=== PATIENT | male | born 1950 | race American Indian/Alaskan Native ===

== ENCOUNTER → 2023-08-01 07:54 | Outpatient (REF) | payer MEDICARE, OTHER, SELFPAY | LOC: DHCBC/DCA 07:54 | PROVIDERS: ATTENDING PHYSICIAN Internal Medicine Cardiovascular Disease; FAMILY PHYSICIAN Internal Medicine | DX: I25.10 Atherosclerotic heart disease of native coronary artery without angina pectoris (principal) | CPT/HCPCS: 78452; 93017; A9500; J2785 ==

== ENCOUNTER → 2024-01-07 11:03 | Outpatient (REF) | payer MEDICARE, OTHER, SELFPAY | LOC: HWRAD 11:03 | PROVIDERS: ATTENDING PHYSICIAN Otolaryngology; FAMILY PHYSICIAN Internal Medicine | DX: J30.89 Other allergic rhinitis (principal); J32.4 Chronic pansinusitis | CPT/HCPCS: 70486 ==

== ENCOUNTER → 2024-03-09 13:51 | Outpatient (REF) | payer MEDICARE, OTHER, SELFPAY | LOC: HWRAD 13:51 | PROVIDERS: ATTENDING PHYSICIAN Physician Assistant Medical; FAMILY PHYSICIAN Internal Medicine; REFERRING PHYSICIAN Surgery | DX: K57.32 Diverticulitis of large intestine without perforation or abscess without bleeding (principal) | CPT/HCPCS: 74177; Q9967 ==

== ENCOUNTER 2024-04-30 06:11 | Day surgery (SDC) | payer MEDICARE, OTHER, SELFPAY ==
[2024-04-30] VITALS (8 sets, daily range): BP systolic 120–152; BP diastolic 74–138; BMI 22.9
[2024-04-30] MEDS: NORMOSOL-R/PLASMALYTE-A 1000 IV (06:42)
[2024-04-30] MEDS: TYLENOL 1000 MG PO (06:42)
== END 2024-04-30 12:15 | disposition home or self-care (01) ==
LOC: SDS 06:11
PROVIDERS: ATTENDING PHYSICIAN Surgery
DX: K43.6 Other and unspecified ventral hernia with obstruction, without gangrene (principal); K42.9 Umbilical hernia without obstruction or gangrene
CPT/HCPCS: 49591; C1781

== ENCOUNTER → 2024-09-20 11:20 | Outpatient (REF) | payer OTHER, SELFPAY | LOC: RAD 11:20 | PROVIDERS: ATTENDING PHYSICIAN Student in an Organized Health Care Education/Training Program; FAMILY PHYSICIAN Internal Medicine | DX: I25.10 Atherosclerotic heart disease of native coronary artery without angina pectoris (principal) | CPT/HCPCS: 71046 ==

== ENCOUNTER → 2024-10-05 07:29 | Outpatient (REF) | payer OTHER, SELFPAY | LOC: HWRCS 07:29 | PROVIDERS: ATTENDING PHYSICIAN Student in an Organized Health Care Education/Training Program; FAMILY PHYSICIAN Internal Medicine | DX: I25.10 Atherosclerotic heart disease of native coronary artery without angina pectoris (principal) | CPT/HCPCS: 78452; 93017; A9500; J2785 ==

== ENCOUNTER 2024-10-12 08:41 | Day surgery (SDC) | payer OTHER, SELFPAY ==
[2024-10-12] VITALS (14 sets, daily range): BP systolic 71–160; BP diastolic 40–84; BMI 25.0
[2024-10-12] MEDS: NSS 198 ML IV (09:34)
[2024-10-12 13:30] LABS: ACT-LR - POC 339 Seconds (116-155)
--- NOTE | 2024-10-12 13:43 | ITS.CL.ANGIO ---
[employer] - Angioplasty
Angioplasty
Procedure Report:
CARDIAC CATHETERIZATION REPORT
Date of Procedure: 10/12/2024
Referring: Mike Francois M.D.
INDICATION: Known coronary artery disease, new and accelerating angina, abnormal stress test.
PROCEDURE:
1. Left heart catheterization.
2. Coronary angiography.
3. Successful PCI of the ostium of OM 2.
A total of 68 minutes of procedural/moderate sedation was utilized. An independent medical reception was present to assist with and help manage the patient's level of consciousness and physiologic status.
ACCESS:
1. 6 [place] right rate artery using a modified Seldinger technique.
CATHETERS:
1. 5 [place]ic JR4.
2. 5 [place] JL 3.5.
3. 6 [place] EBU 3.5 guiding catheter.
HEMODYNAMIC DATA
Weight (kg): 66.6
AO (s/d/x, mmHg): 139/63/99
LV (s/x mmHg): 144/10
LEFT VENTRICULOGRAPHY: Not performed.
CORONARY ANGIOGRAPHY
Dominance: Right.
Left Main: Normal size, bifurcating vessel. There is no coronary artery disease.
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 A patent stent is visible in the mid LAD. There is a 60% lesion in the ostium of the small
first diagonal. There are luminal irregularities throughout the rest of the LAD.
Ramus: Congenitally absent.
Circumflex: Normal size, nondominant vessel giving rise to 2 obtuse marginals. There is a 40% lesion in the ostium of OM1. There is an 80% lesion in the ostium of OM 2.
RCA: Normal size, dominant vessel with chronic total occlusion of the proximal vessel. The vessel reconstitutes in its midportion through bridging and right to right collaterals.
INTERVENTION(S)
1. Successful PCI of the 80% ostial OM 2 lesion (Medtronic Kiko Isabela 3.0 x 18 ELISABETH, postdilated with a 3.0 NC balloon) with reduction in stenosis to 0%, maintaining CECE-3 flow.
Narrative:
The decision was made to proceed with percutaneous coronary intervention. The diagnostic catheter was removed over a wire and a 6Fr EBU 3.5 guiding catheter was advanced to the aortic root and seated in the left main coronary artery. Additional
heparin was given and a Power Turn Flex wire was advanced into the distal aspect of the second obtuse marginal. The 80% proximal OM 2 lesion was predilated with a 2.0 x 12 semi-compliant balloon to 12 dennis. The semi-compliant balloon was removed and
a Medtronic Merritt Isabela 3.0 x 18 drug-eluting stent was advanced. Meticulous care was taken while positioning the stent, ensuring that the proximal stent edge would not interfere with the bifurcation of the AV groove circumflex. When we were
satisfied with our position, the stent was deployed at 12 atmospheres. The stent balloon was removed. A 3.0 x 12 noncompliant balloon was advanced into the stent and the stent was postdilated to 14 atmospheres in the distal margin and 15 dennis in the
proximal margin. Angiography was performed in orthogonal views, confirming good stent expansion and an excellent angiographic result. The coronary wire was withdrawn and the guide was disengaged from the artery. The catheter was removed over a
standard J-wire.
Closure Device: Vascular band.
Radiation (mGy): 840.67
DAP (cm2.Gy): 61.6301
Fluoroscopy time (minutes): 9.4
CONCLUSIONS
1. Right dominant circulation with chronic total occlusion of the RCA that reconstitutes via right to right collaterals, a patent stent in the mid LAD, a 60% lesion in the ostium of the first diagonal, a 40% lesion in the ostium of OM1 and an 80%
lesion in the ostium of OM 2, status post successful PCI (Medtronic Merritt Isabela 3.0 x 18 ELISABETH, postdilated with a 3.0 NC balloon) with reduction in stenosis to 0%, maintaining CECE-3 flow.
2. Normal filling pressures (LVEDP = 10 mmHg at 66.6 kg).
3. 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
RECOMMENDATIONS:
1. Expectant management after cardiac catheterization via right approach.
2. Limited weight bearing on the right wrist for one week.
3. Dual antiplatelet therapy with aspirin and clopidogrel for at least 12 months, followed by aspirin indefinitely.
4. Aggressive secondary prevention with evolocumab and simvastatin. LDL is below goal of <55.
5. GDMT/OMT as hemodynamics will tolerate.
6. Referral to cardiac rehab.
Copy to: Mike Francois M.D. Phi Silvestre M.D.
Floyd Lind DO, FACC, FACP
--- NOTE | 2024-10-12 16:13 | W.PN.UPDATE ---
Update Note
Progress Note Update
74 yo male s/p PCI LCX (same day) He denies cp, sob, kwesi diet, voiding, EKG SR no ST changes, R rad with TR band intact no HT. He will be on DAPT ASA/Plavix. Cardiac rehab c/s. He will f/u [facility] in 2 weeks. Activity restrictions reviewed. He is for d/c
home after 630p if rad site stable.
--- NOTE | 2024-10-12 18:10 | PTCARENOTE ---
At 1800 patient had small scant drainage to corner of R radial dressing. Manual pressure held and new dressing applied. Patient then stated, 'I feel like I am sweating.' Patient diaphoretic. BP 70s/50s. Laid flat in chair and IVF administered wide
open. Dr. Lind notified. Handoff given to Shaina DORANTES. Patient now stable and will continue to be monitored. No new orders received at this time.
== END 2024-10-12 19:05 | disposition home or self-care (01) ==
LOC: CATH 08:41
PROVIDERS: ATTENDING PHYSICIAN Internal Medicine Cardiovascular Disease; FAMILY PHYSICIAN Internal Medicine; OTHER PHYSICIAN Student in an Organized Health Care Education/Training Program
DX: I25.10 Atherosclerotic heart disease of native coronary artery without angina pectoris (principal); I10 Essential (primary) hypertension; Z79.02 Long term (current) use of antithrombotics/antiplatelets; Z79.82 Long term (current) use of aspirin; Z95.5 Presence of coronary angioplasty implant and graft; I25.82 Chronic total occlusion of coronary artery; I25.5 Ischemic cardiomyopathy; I49.1 Atrial premature depolarization
CPT/HCPCS: 99152; 99153; 85347; 93005; 93458; C1725; C1769; C1874; C1894; C9600; Q9967